=== PATIENT | female | born 1970 | race Two or more races ===

== ENCOUNTER → 2017-09-04 | Emergency (ER) | payer OTHER ==
[~2017-09-04] VITALS: Ht 172.7 cm; Wt 68.0 kg
[~2017-09-04] MED LIST: OSEL75CA PO; SYNTHROID50 MCG; TUSSI PRES-B L120 M1 PO
== END | disposition home or self-care (01) ==
LOC: ER 08:56
DX: B34.9 Viral infection, unspecified (principal)